=== PATIENT | female | born 1955 | race Caucasian/White ===

== ENCOUNTER 2018-03-26 15:27 | Emergency (ER) | payer BC ==
[2018-03-26] MEDS ORDERED: Ondansetron 4 MG Tab.DIS PO ONE ×2 (15:28→16:04)
[2018-03-26 15:29] VITALS: BP 140/87
[2018-03-26] MEDS ORDERED: Morphine 4 MG/ML Syringe IM ONE (16:03)
[2018-03-26 16:27] LABS: CHLORIDE,CL 99 mEq/L (98-106); SODIUM,NA 135 mEq/L (136-145)
--- NOTE | 2018-03-26 17:08 | EDM.PDOC ---
ED HPI GENERAL MEDICAL PROBLEM - General Chief Complaint: Eye Problems Stated Complaint: Eye pain Time Seen by Provider: 03/26/18 15:38 Source of Information: Reports: Patient History Limitations: Reports: No Limitations - History of Present Illness INITIAL COMMENTS - FREE TEXT/NARRATIVE: This patient is a 62 year old female that presents to the ER. I saw this patient in clinic yesterday for eye bleeding and pain right after surgery on Tuesday. Patient was discharged home and refused pain medications yesterday or medication for anxiety. Patient reports that today she would like a shot for pain. She reports started last night having right frontal headache, nausea, and vomited x1. Patient denies unilateral weaknesses. Stroke Score 0. Patient alert and oriented. No further changes from eye from baseline post surgery. Onset Date: 03/20/18 Location: Reports: Head Quality: Reports: Ache Severity: Moderate Improves with: Reports: None Worsens with: Reports: None Associated Symptoms: Reports: Headaches. Denies: Confusion, Chest Pain, Cough, cough w sputum, Diaphoresis, Fever/Chills, Loss of Appetite, Malaise, Nausea/ Vomiting, Rash, Seizure, Shortness of Breath, Syncope, Weakness Right Eye Pain Score (Numeric/FACES): 7 - Related Data Allergies Allergy/AdvReac Type Severity Reaction Status Date / Time No Known Allergies Allergy Verified 03/26/18 15:30 Home Meds: Home Meds ALPRAZolam [Xanax] 0.25 mg PO Q4H PRN 01/16/16 [History] Sertraline [Zoloft] 50 mg PO DAILY 01/16/16 [History] Lisinopril [Prinivil] 10 mg PO BID #60 tablet 01/19/16 [Rx] Magnesium 500 mg PO DAILY #30 tablet 01/19/16 [Rx] Acetaminophen [Tylenol] 325 mg PO DAILY PRN 03/26/18 [History] Jentili 03/26/18 [History] traMADol [Ultram] 50 mg PO DAILY PRN 03/26/18 [History] Past Medical History Cardiovascular History: Reports: Hypertension Psychiatric History: Reports: Anxiety, Depression - Past Surgical History HEENT Surgical History: Reports: Other (See Below) Other HEENT Surgeries/Procedures: retinal surgerys Social & Family History - Tobacco Use Smoking Status *Q: Never Smoker ED ROS GENERAL - Review of Systems Review Of Systems: See Below Constitutional: Reports: No Symptoms HEENT: Reports: Eye Pain (Right , no changes from surgery last Tuesday ) Respiratory: Reports: No Symptoms Cardiovascular: Reports: No Symptoms Endocrine: Reports: No Symptoms GI/Abdominal: Reports: Nausea, Vomiting : Reports: No Symptoms Musculoskeletal: Reports: No Symptoms Skin: Reports: No Symptoms Neurological: Reports: No Symptoms Psychiatric: Reports: No Symptoms Hematologic/Lymphatic: Reports: No Symptoms Immunologic: Reports: No Symptoms ED EXAM GENERAL W FULL EYE - Physical Exam Exam: See Below Exam Limited By: No Limitations General Appearance: Alert, WD/WN, No Apparent Distress Eye Exam: Right Eye: Other (hemorrhage conjucta. controlled. stable. ), Left Eye : PERRL, Bilateral Eye: EOMI Eyelids: Bilateral: Normal Appearance Conjunctiva & Sclera: Right: Subconjuctival Hemorrhage Cornea Exam: Right: Other (large 5mm), Left: Normal Appearance Extraocular Movements: Bilateral: Intact Pupillary Size: Right: 5 mm, Left: 3 mm Ears: Normal External Exam, Normal Canal, Hearing Grossly Normal, Normal TMs Nose: Normal Inspection, Normal Mucosa, No Blood Throat/Mouth: Normal Inspection, Normal Lips, Normal Teeth, Normal Gums, Normal Oropharynx, Normal Voice, No Airway Compromise Head: Atraumatic, Normocephalic Neck: Normal Inspection, Supple, Non-Tender, Full Range of Motion Respiratory/Chest: No Respiratory Distress, Lungs Clear, Normal Breath Sounds, No Accessory Muscle Use Cardiovascular: Normal Peripheral Pulses, Regular Rate, Rhythm, No Edema, No Gallop, No JVD, No Murmur, No Rub GI/Abdominal: Normal Bowel Sounds, Soft, Non-Tender, No Organomegaly, No Distention, No Abnormal Bruit, No Mass, Pelvis Stable (Female) Exam: Deferred Rectal (Female) Exam: Deferred Back Exam: Normal Inspection, Full Range of Motion Extremities: Normal Inspection, Normal Range of Motion, Non-Tender, No Pedal Edema, Normal Capillary Refill Neurological: Alert, Oriented, CN II-XII Intact, Normal Cognition, Normal Gait, No Motor/Sensory Deficits Psychiatric: Normal Mood, Anxious Skin Exam: Warm, Dry, Intact, Normal Color, No Rash Lymphatic: No Adenopathy Course - Vital Signs Last Recorded V/S: Last Vital Signs Temp 97.5 F 03/26/18 15:27 Pulse 91 03/26/18 15:27 Resp 18 03/26/18 15:27 BP 140/87 03/26/18 15:27 Pulse Ox 98 03/26/18 15:27 - Orders/Labs/Meds Orders: Active Orders 24 hr Category Date Time Status Head wo Cont [CT] Stat Exams 03/26/18 16:01 Taken UA W/MICROSCOPIC [URIN] Stat Lab 03/26/18 16:01 Ordered Labs: Laboratory Tests 03/26/18 03/26/18 03/26/18 Range/Units 16:01 16:01 16:01 WBC 6.1 (5.0-10.0) 10^3/uL RBC 4.44 (4.00-5.50) 10^6/uL Hgb 13.4 (12.0-16.0) g/dL Hct 39.4 (37.0-47.0) % MCV 88.7 (82.0-94.0) fL MCH 30.2 (27.0-32.0) pg MCHC 34.0 (33.0-38.0) g/dL RDW Coeff of Arabella 13.1 (11.0-15.0) % Plt Count 214 (150-400) 10^3/uL Neut % (Auto) 77.4 (35-85) % Lymph % (Auto) 16.0 (10-55) % [place] % (Auto) 5.7 (0-16) % Eos % (Auto) 0.7 (0-5) % Baso % (Auto) 0.2 (0-3) % Neut # (Auto) 4.73 (1.80-7.00) 10^3/uL Lymph # (Auto) 0.98 L (1.00-4.80) 10^3/uL [place] # (Auto) 0.35 (0.00-0.80) 10^3/uL Eos # (Auto) 0.04 (0.00-0.45) 10^3/uL Baso # (Auto) 0.01 10^3/uL Sodium 135 L (136-145) mEq/L Potassium 4.0 (3.5-5.0) mEq/L Chloride 99 (98-106) mEq/L Carbon Dioxide 30 (21-32) mmol/L BUN 20 H (7-18) mg/dL Creatinine 1.0 (0.6-1.0) mg/dL Est Cr Clr Drug Dosing TNP Estimated GFR (MDRD) 56 L (>=60) mL/min Glucose 155 H D (75-99) mg/dL Calcium 8.9 (8.4-10.1) mg/dL Total Bilirubin 0.5 (0.0-1.0) mg/dL AST 11 L (15-37) U/L ALT 15 (12-78) U/L Alkaline Phosphatase 57 (46-116) U/L Total Protein 7.2 (6.4-8.2) g/dL Albumin 3.9 (3.4-5.0) g/dL Urine Color Yellow (YELLOW) Urine Appearance Clear (CLEAR) Urine pH 5.5 (4.5-8.0) Ur Specific [place] 1.025 H (1.003-1.020) Urine Protein 30 H (NEGATIVE) mg/dL Urine Glucose (UA) Negative (NEGATIVE) mg/dL Urine Ketones 15 H (NEGATIVE) mg/dL Urine Occult Blood Trace-lysed H (NEGATIVE) Urine Nitrite Negative (NEGATIVE) Urine Bilirubin Negative (NEGATIVE) Urine Urobilinogen 0.2 (0.2-1.0) EU/dL Ur Leukocyte Esterase Small H (NEGATIVE) Urine RBC Not seen (0-5) /HPF Urine WBC 0-5 (0-5) /HPF Ur Squamous Epith Cells Many H (NOT SEEN) /HPF Meds: Medications Discontinued Medications Generic Name Dose Route Start Last Admin Trade Name Freq PRN Reason Stop Dose Admin Morphine Sulfate 4 mg 03/26/18 16:03 03/26/18 16:32 Morphine IM 03/26/18 16:04 4 mg ONETIME ONE Administration Ondansetron HCl 4 mg 03/26/18 16:04 03/26/18 16:31 Zofran Odt PO 03/26/18 16:05 4 mg ONETIME ONE Administration Ondansetron HCl 3 packet 03/26/18 17:50 Take Home: Ondansetron Odt 4 Mg, 2 Tab Pack PO 03/26/18 17:51 ONETIME ONE - Radiology Interpretation Free Text/Narrative:: Head CT: No acute findings. - Re-Assessments/Exams Free Text/Narrative Re-Assessment/Exam: 03/26/18 17:58 Patient reports pain is better after Morphine and nausea resolved. She reports she is ready to go home now. Departure - Departure Time of Disposition: 17:48 Disposition: Home, Self-Care 01 Condition: Good Clinical Impression: Pain, eye, right Vomiting Qualifiers: Vomiting type: unspecified Vomiting Intractability: non-intractable Nausea presence: with nausea Qualified Code(s): R11.2 - Nausea with vomiting, unspecified - Discharge Information Instructions: Vomiting, Adult Forms: ED Department Discharge Additional Instructions: Followup with eye surgeon Return to the ER for worsening of condition or any emergent concerns Increase fluids Followup with your primary care provider Zofran 4mg 1 pill under the tongue every 6 hours as needed for nausea #6 no refill take home - My Orders Last 24 Hours: My Active Orders 03/26/18 16:01 Head wo Cont [CT] Stat UA W/MICROSCOPIC [URIN] Stat - Assessment/Plan Last 24 Hours: My Active Orders 03/26/18 16:01 Head wo Cont [CT] Stat UA W/MICROSCOPIC [URIN] Stat Plan: PLEASE SEE RN NOTE FOR PFSH.
[2018-03-26] MEDS ORDERED: Take Home: Ondansetron 4 MG Tab.DIS, 2 Tab Pack PO ONE (17:50)
== END 2018-03-26 18:03 | disposition home or self-care (01) ==
LOC: CC.ED 15:27
DX: H57.11 Ocular pain, right eye (principal); R11.2 Nausea with vomiting, unspecified; I10 Essential (primary) hypertension; F32.9 Major depressive disorder, single episode, unspecified; Z79.899 Other long term (current) drug therapy
CPT/HCPCS: 36415; 70450; 80053; 81001; 85025; 96372; 99283; A9270; J2270

== ENCOUNTER 2024-11-30 08:13 | Day surgery (SDC) | payer MEDICARE, BC ==
[2024-11-30] MEDS ORDERED: Ketamine 200 MG/20 ML MDV ONE (08:48)
[2024-11-30] MEDS ORDERED: fentaNYL 50 MCG/ML SDV ONE (08:48)
[2024-11-30] MEDS ORDERED: Propofol 200 MG/20 ML SDV ONE ×2 (08:48)
[2024-11-30] MEDS ORDERED: Labetalol 100 MG/20 ML MDV ONE (08:48)
[2024-11-30] MEDS ORDERED: Midazolam 1 MG/ML 2 ML SDV ONE (08:48)
[2024-11-30] MEDS: Lactated Ringers 1,000 ML IV SCH (08:53)
[2024-11-30 11:43] VITALS: BP 131/83; PULSE 74
== END 2024-11-30 10:45 | disposition home or self-care (01) ==
LOC: CC.SDS 08:13
PROVIDERS: ATTEND Family Medicine
DX: Z12.11 Encounter for screening for malignant neoplasm of colon (principal); R19.5 Other fecal abnormalities; K57.30 Diverticulosis of large intestine without perforation or abscess without bleeding; I10 Essential (primary) hypertension; F32.A Depression, unspecified; E78.5 Hyperlipidemia, unspecified; Z79.899 Other long term (current) drug therapy; Z88.5 Allergy status to narcotic agent; Z88.8 Allergy status to other drugs, medicaments and biological substances
CPT/HCPCS: 00812; 88305; J1920; J2250; J2704; J3010; J3490; J7120

== ENCOUNTER 2024-12-20 11:56 | Emergency (ER) | payer MEDICARE, BC ==
[2024-12-20] MEDS: Ondansetron 4 MG/2 ML SDV IVPUSH STA ×2 (12:30→13:42)
[2024-12-20] MEDS: Morphine 4 MG/ML VIAL IVPUSH ONE (12:30)
[2024-12-20 12:44] VITALS: BP 145/87; PULSE 77
[2024-12-20] MEDS: HYDROmorphone 1 MG/ML Syringe IVPUSH ONE (13:18)
[2024-12-20] MEDS ORDERED: Ondansetron 4 MG/2 ML SDV ONE (19:02)
== END 2024-12-20 13:47 ==
LOC: CC.ED 11:56 → SUPCPDRO 11:56 → CC.ED 13:47
DX: S82.832A Other fracture of upper and lower end of left fibula, initial encounter for closed fracture (principal); S82.302A Unspecified fracture of lower end of left tibia, initial encounter for closed fracture; I10 Essential (primary) hypertension; Z79.899 Other long term (current) drug therapy; Z88.1 Allergy status to other antibiotic agents; Z88.5 Allergy status to narcotic agent; W00.0XXA Fall on same level due to ice and snow, initial encounter
CPT/HCPCS: 73590-LT; 73610-LT; 96374; 96375; 96376; 99284-25; J1171; J2270; J2405